=== PATIENT | male | born 1970 | race African-American/Black ===

== ENCOUNTER 2018-05-22 05:08 | Emergency (ER) | payer MEDICAID ==
[~2018-05-22] VITALS: Ht 182.9 cm; Wt 90.5 kg
[2018-05-22 05:30] VITALS: BP 159/98
[2018-05-22] MEDS ORDERED: ACET-3067 PO (05:43)
[2018-05-22] MEDS ORDERED: PENI500T2 PO (05:43)
== END 2018-05-22 05:58 | disposition home or self-care (01) ==
LOC: ER 05:09
DX: K02.9 Dental caries, unspecified (principal); K08.89 Other specified disorders of teeth and supporting structures
CPT/HCPCS: 99283

== ENCOUNTER 2018-12-15 18:13 | Emergency (ER) | payer MEDICAID ==
[~2018-12-15] VITALS: Ht 167.6 cm; Wt 86.4 kg
[2018-12-15 19:01] LABS: BASOPHILS % (AUTO) 0.8 % (0-1); EOSINOPHILS # (AUTO) 0.1 X10'3 (0-0.9); EOSINOPHILS % (AUTO) 2.3 % (0-6); HEMATOCRIT 48.3 % (42.0-52.0); HEMOGLOBIN 16.3 g/dl (14.0-17.9); LYMPHOCYTES # (AUTO) 1.8 X10'3 (1.1-4.8); LYMPHOCYTES % (AUTO) 33.4 % (21-51); MEAN CORPUSCULAR HEMOGLOBIN 30.6 PG (27.0-31.0); MEAN CORPUSCULAR HGB CONC 33.7 g/dL (33.0-36.5); MEAN CORPUSCULAR VOLUME 90.7 FL (78-98); MEAN PLATELET VOLUME 6.9 FL (7.4-10.4); MONOCYTES # (AUTO) 0.4 X10'3 (0-0.9); MONOCYTES % (AUTO) 7.8 % (2-12); NEUTROPHILS # (AUTO) 3.1 X10'3 (1.8-7.7); NEUTROPHILS % (AUTO) 55.7 % (42-75); PLATELET COUNT 234 X10'3 (140-440); RED BLOOD COUNT 5.33 X10'6 (4.70-6.10); RED CELL DISTRIBUTION WIDTH 13.6 % (11.5-14.5); WHITE BLOOD COUNT 5.5 X10'3 (4.5-11.0)
[2018-12-15 19:06] LABS: PARTIAL THROMBOPLASTIN TIME 29 SECONDS (22-32)
[2018-12-15 19:10] LABS: ALANINE AMINOTRANSFERASE 39 U/L (12-78); ALBUMIN 3.8 G/DL (3.4-5.0); ALKALINE PHOSPHATASE 83 IU/L (46-116); ANION GAP 5 (8-16); ASPARTATE AMINO TRANSFERASE 14 U/L (10-37); BILIRUBIN,TOTAL 0.5 MG/DL (0.1-1.0); BLOOD UREA NITROGEN 14 MG/DL (7-18); BUN/CREATININE RATIO 13.2 (5.4-32.0); CALCIUM 8.7 MG/DL (8.5-10.1); CHLORIDE 102 MMOL/L (99-107); CREATININE 1.06 MG/DL (0.60-1.10); GLUCOSE 104 MG/DL (70-104); POTASSIUM 4.3 MMOL/L (3.5-5.1); SODIUM 137 MMOL/L (135-145); TOTAL CARBON DIOXIDE 30.3 MMOL/L (24-32); TOTAL PROTEIN 7.8 G/DL (6.4-8.2); eGFR 89 ML/MIN
[2018-12-15 19:15] VITALS: BP 134/79
== END 2018-12-15 19:17 | disposition home or self-care (01) ==
LOC: ER 18:14
DX: R42 Dizziness and giddiness (principal); R79.1 Abnormal coagulation profile
CPT/HCPCS: 36415; 71045; 80053; 82948; 83880; 84484; 85025; 85610; 85730; 93005; 99284

== ENCOUNTER 2019-03-22 21:16 | Emergency (ER) | payer MEDICAID ==
[~2019-03-22] VITALS: Ht 167.6 cm; Wt 86.0 kg
[2019-03-22 21:38] VITALS: BP 129/76
--- NOTE | 2019-03-22 21:43 | NUR ---
Pt en route to XR via wheelchair.
[2019-03-22] MEDS ORDERED: TRAM50TA2 PO (22:00)
== END 2019-03-22 22:19 | disposition home or self-care (01) ==
LOC: ER 21:17
DX: M79.651 Pain in right thigh (principal); Z79.899 Other long term (current) drug therapy
CPT/HCPCS: 73552; 99283

== ENCOUNTER 2020-08-19 22:06 | Emergency (ER) | payer MEDICAID ==
[~2020-08-19] VITALS: Ht 167.6 cm; Wt 90.0 kg
[2020-08-20] MEDS ORDERED: AMOX500C2 PO (00:39)
[2020-08-20] MEDS ORDERED: HYDR-3965 PO (00:39)
[2020-08-20] MEDS ORDERED: HYDROcodone/acetaminophen 5mg/325mg tablet PO ONE (00:40)
[2020-08-20] MEDS ORDERED: amoxicillin 250mg capsule PO ONE (00:40)
[2020-08-20 00:49] VITALS: BP 150/87
== END 2020-08-20 01:20 | disposition home or self-care (01) ==
LOC: ER 22:07
DX: K08.89 Other specified disorders of teeth and supporting structures (principal); Z79.2 Long term (current) use of antibiotics
CPT/HCPCS: 99283

== ENCOUNTER 2020-09-25 23:17 | Emergency (ER) | payer MEDICAID ==
[~2020-09-25] VITALS: Ht 170.2 cm; Wt 100.9 kg
[2020-09-25] MEDS ORDERED: AMOX500C2 PO (23:53)
[2020-09-25] MEDS ORDERED: LIDO20SO16 PO (23:57)
[2020-09-25 23:58] VITALS: BP 134/78
== END 2020-09-26 00:35 | disposition home or self-care (01) ==
LOC: ER 23:17
DX: K04.7 Periapical abscess without sinus (principal); Z76.0 Encounter for issue of repeat prescription; Z79.899 Other long term (current) drug therapy
CPT/HCPCS: 99281

== ENCOUNTER 2021-01-10 11:40 | Emergency (ER) | payer MEDICAID ==
[~2021-01-10] VITALS: Ht 172.7 cm; Wt 100.0 kg
[~2021-01-10 11:40] MED LIST: LIDO20SO16 PO
[2021-01-10 11:57] VITALS: BP 139/78
[2021-01-10] MEDS ORDERED: IBUP-1985 PO (16:26)
== END 2021-01-10 16:42 | disposition home or self-care (01) ==
LOC: ER 11:41
DX: M25.561 Pain in right knee (principal); M79.89 Other specified soft tissue disorders; R51.9 Headache, unspecified; K08.89 Other specified disorders of teeth and supporting structures
CPT/HCPCS: 99282

== ENCOUNTER 2022-02-25 02:24 | Emergency (ER) | payer MEDICAID ==
[~2022-02-25] VITALS: Ht 167.6 cm; Wt 100.0 kg
[~2022-02-25 02:24] MED LIST changes: +IBUP-1985 PO
[2022-02-25 02:29] VITALS: BP 132/75
[2022-02-25 03:16] LABS: BASOPHILS % (AUTO) 0.7 % (0-1); EOSINOPHILS # (AUTO) 0.2 X10'3 (0-0.9); EOSINOPHILS % (AUTO) 3.2 % (0-6); HEMOGLOBIN 14.9 g/dl (14.0-17.9); LYMPHOCYTES # (AUTO) 2.1 X10'3 (1.1-4.8); LYMPHOCYTES % (AUTO) 39.4 % (21-51); MEAN CORPUSCULAR HGB CONC 34.7 g/dL (33.0-36.5); MEAN CORPUSCULAR VOLUME 89.4 FL (78-98); MONOCYTES # (AUTO) 0.4 X10'3 (0-0.9); MONOCYTES % (AUTO) 7.6 % (2-12); NEUTROPHILS # (AUTO) 2.6 X10'3 (1.8-7.7); NEUTROPHILS % (AUTO) 49.1 % (42-75); PLATELET COUNT 236 X10'3 (140-440); WHITE BLOOD COUNT 5.3 X10'3 (4.5-11.0)
[2022-02-25 03:18] LABS: ALANINE AMINOTRANSFERASE 30 U/L (12-78); ALBUMIN 3.7 G/DL (3.4-5.0); ALKALINE PHOSPHATASE 101 IU/L (46-116); ANION GAP 8 (8-16); ASPARTATE AMINO TRANSFERASE 12 U/L (10-37); BILIRUBIN,TOTAL 0.4 MG/DL (0.1-1.0); BLOOD UREA NITROGEN 16 MG/DL (7-18); BUN/CREATININE RATIO 14.2 (5.4-32.0); CALCIUM 8.5 MG/DL (8.5-10.1); CHLORIDE 101 MMOL/L (99-107); CREATININE 1.13 MG/DL (0.60-1.10); GLUCOSE 167 MG/DL (70-104); SODIUM 138 MMOL/L (135-145); TOTAL CARBON DIOXIDE 29.5 MMOL/L (24-32); TOTAL PROTEIN 7.3 G/DL (6.4-8.2); eGFR 82 ML/MIN
== END 2022-02-25 07:14 | disposition left against medical advice (07) ==
LOC: ER 02:25
DX: R07.9 Chest pain, unspecified (principal); Z53.21 Procedure and treatment not carried out due to patient leaving prior to being seen by health care provider; M54.2 Cervicalgia; M54.9 Dorsalgia, unspecified
CPT/HCPCS: 36415; 71045; 80053; 83880; 84484; 85025; 93005

== ENCOUNTER 2022-02-25 07:44 | Emergency (ER) | payer MEDICAID ==
[~2022-02-25] VITALS: Ht 165.1 cm; Wt 100.0 kg
[2022-02-25 07:57] VITALS: BP 134/80
== END 2022-02-25 11:26 | disposition home or self-care (01) ==
LOC: ER 07:44
DX: M54.6 Pain in thoracic spine (principal); M54.2 Cervicalgia; M25.512 Pain in left shoulder; I10 Essential (primary) hypertension
CPT/HCPCS: 93005; 99283

== ENCOUNTER 2022-04-18 22:43 | Emergency (ER) | payer MEDICAID ==
[~2022-04-18] VITALS: Ht 167.6 cm; Wt 95.5 kg
[2022-04-19] MEDS ORDERED: AMLO5TAB4 PO (03:22)
[2022-04-19 03:31] VITALS: BP 147/100
== END 2022-04-19 03:33 | disposition home or self-care (01) ==
LOC: ER 22:44
DX: I10 Essential (primary) hypertension (principal); Z79.899 Other long term (current) drug therapy
CPT/HCPCS: 99283

== ENCOUNTER 2022-12-03 22:38 | Emergency (ER) | payer MEDICAID ==
[~2022-12-03] VITALS: Ht 167.6 cm; Wt 97.7 kg
[~2022-12-03 22:38] MED LIST changes: +AMLO5TAB4 PO
[2022-12-03 22:45] VITALS: BP 130/64
== END 2022-12-04 01:53 | disposition left against medical advice (07) ==
LOC: ER 22:38
DX: R05.9 Cough, unspecified (principal); Z53.21 Procedure and treatment not carried out due to patient leaving prior to being seen by health care provider
CPT/HCPCS: 99281

== ENCOUNTER 2023-07-25 18:30 | Emergency (ER) | payer MEDICAID ==
[~2023-07-25 18:30] MED LIST changes: +AMI200T PO; -AMLO5TAB4 PO; +AMOX-580 PO; +ASPI81TA53 PO; +ATOR10TA PO; +CLOP75TA34 PO; +FURO40TA4 PO; -IBUP-1985 PO; -LIDO20SO16 PO; +LOP25T PO; +NO HOME MEDS; +POTA8TAB69 PO
== END 2023-07-25 20:06 | disposition left against medical advice (07) ==
LOC: ER 18:31
DX: Z00.8 Encounter for other general examination (principal); Z53.21 Procedure and treatment not carried out due to patient leaving prior to being seen by health care provider

== ENCOUNTER 2023-07-26 16:30 | Emergency (ER) | payer MEDICAID ==
[~2023-07-26] VITALS: Ht 167.6 cm; Wt 93.0 kg
[2023-07-26 16:37] VITALS: TEMP 98.2
[2023-07-26 17:46] LABS: BASOPHILS # (AUTO) 0.1 X10'3 (0-0.2); BASOPHILS % (AUTO) 0.7 % (0-1); EOSINOPHILS # (AUTO) 0.3 X10'3 (0-0.9); HEMATOCRIT 36.6 % (42.0-52.0); HEMOGLOBIN 12.3 g/dl (14.0-17.9); LYMPHOCYTES # (AUTO) 1.5 X10'3 (1.1-4.8); LYMPHOCYTES % (AUTO) 15.5 % (21-51); MEAN CORPUSCULAR HGB CONC 33.8 g/dL (33.0-36.5); MEAN CORPUSCULAR VOLUME 88.8 FL (78-98); MEAN PLATELET VOLUME 6.9 FL (7.4-10.4); MONOCYTES # (AUTO) 1.3 X10'3 (0-0.9); MONOCYTES % (AUTO) 13.5 % (2-12); NEUTROPHILS # (AUTO) 6.5 X10'3 (1.8-7.7); NEUTROPHILS % (AUTO) 67.3 % (42-75); PLATELET COUNT 485 X10'3 (140-440); RED BLOOD COUNT 4.12 X10'6 (4.70-6.10); RED CELL DISTRIBUTION WIDTH 13.2 % (11.5-14.5); WHITE BLOOD COUNT 9.6 X10'3 (4.5-11.0)
[2023-07-26 18:04] LABS: ALANINE AMINOTRANSFERASE 122 U/L (12-78); ALBUMIN 3.1 G/DL (3.4-5.0); ALBUMIN/GLOBULIN RATIO 0.7 (1.1-1.5); ALKALINE PHOSPHATASE 129 IU/L (46-116); ANION GAP 8 (8-16); ASPARTATE AMINO TRANSFERASE 31 U/L (10-37); BILIRUBIN,TOTAL 0.5 MG/DL (0.1-1.0); BLOOD UREA NITROGEN 13 MG/DL (7-18); BUN/CREATININE RATIO 11.4 (10.0-20.0); CALCIUM 7.6 MG/DL (8.5-10.1); CHLORIDE 102 MMOL/L (99-107); CREATININE 1.14 MG/DL (0.60-1.10); GLUCOSE 103 MG/DL (70-104); POTASSIUM 4.3 MMOL/L (3.5-5.1); SODIUM 140 MMOL/L (135-145); TOTAL CARBON DIOXIDE 30.2 MMOL/L (24-32); TOTAL PROTEIN 7.8 G/DL (6.4-8.2); eCRCL 67 ML/MIN; eGFR 81 ML/MIN
[2023-07-26 18:11] LABS: PRO BRAIN NATRIURETIC PEPTIDE 835 PG/ML (0-125)
[2023-07-26 18:57] LABS: TOTAL CELLS COUNTED 100
[2023-07-26 18:58] LABS: PLATELET ESTIMATE INCREASED
[2023-07-26] MEDS: HYDROmorphone 1 mg/ml syringe IV ONE (20:32)
[2023-07-26 21:24] VITALS: BP 103/66; PULSE 89; RESP 18; O2SAT 96
[2023-07-27] MEDS ORDERED: OMEP40CA21 PO (20:02)
== END 2023-07-26 21:26 | disposition home or self-care (01) ==
LOC: ER 16:33
DX: G89.18 Other acute postprocedural pain (principal); R07.89 Other chest pain; I10 Essential (primary) hypertension; F12.90 Cannabis use, unspecified, uncomplicated; F15.90 Other stimulant use, unspecified, uncomplicated; Z98.890 Other specified postprocedural states
CPT/HCPCS: 36415; 71045; 80053; 83880; 84484; 85007; 85025; 93005; 96374; 99285; J1170

== ENCOUNTER 2023-07-27 17:44 | Emergency (ER) | payer MEDICAID ==
[~2023-07-27] VITALS: Ht 167.6 cm; Wt 93.6 kg
[2023-07-27 18:00] VITALS: BP 136/103; PULSE 88; RESP 16; TEMP 98; O2SAT 98
[2023-07-27] MEDS ORDERED: OMEP40CA21 PO (20:02)
[2023-07-27] MEDS: mag hydrox/Alum hydrox/simeth 30ml oral suspension PO ONE (20:06)
[2023-07-27] MEDS: LIDOcaine Viscous 15ml cup MM PRN (20:07)
== END 2023-07-27 20:15 | disposition home or self-care (01) ==
LOC: ER 17:45
DX: R10.13 Epigastric pain (principal); F12.10 Cannabis abuse, uncomplicated; F15.10 Other stimulant abuse, uncomplicated; I10 Essential (primary) hypertension; Z79.899 Other long term (current) drug therapy
CPT/HCPCS: 96372; 99283; 99284

== ENCOUNTER 2024-03-22 16:27 | Emergency (ER) | payer MEDICAID, OTHER ==
[~2024-03-22] VITALS: Ht 167.6 cm; Wt 97.7 kg
[2024-03-22 18:06] LABS: BASOPHILS # (AUTO) 0.1 X10'3 (0-0.2); BASOPHILS % (AUTO) 0.9 % (0-1); EOSINOPHILS # (AUTO) 0.1 X10'3 (0-0.9); EOSINOPHILS % (AUTO) 1.5 % (0-6); LYMPHOCYTES # (AUTO) 2.1 X10'3 (1.1-4.8); LYMPHOCYTES % (AUTO) 31.5 % (21-51); MEAN CORPUSCULAR HEMOGLOBIN 30.7 PG (27.0-31.0); MEAN CORPUSCULAR HGB CONC 33.6 g/dL (33.0-36.5); MEAN CORPUSCULAR VOLUME 91.5 FL (78-98); MEAN PLATELET VOLUME 7.3 FL (7.4-10.4); MONOCYTES # (AUTO) 0.7 X10'3 (0-0.9); MONOCYTES % (AUTO) 10.3 % (2-12); NEUTROPHILS # (AUTO) 3.7 X10'3 (1.8-7.7); NEUTROPHILS % (AUTO) 55.8 % (42-75); PLATELET COUNT 293 X10'3 (140-440); RED CELL DISTRIBUTION WIDTH 13.4 % (11.5-14.5); WHITE BLOOD COUNT 6.6 X10'3 (4.5-11.0)
[2024-03-22 18:08] LABS: HEMOGLOBIN 18.1 g/dl (14.0-17.9)
[2024-03-22] MEDS: normal saline 1000ml 1,000 ML IV ONE (18:36)
[2024-03-22 18:54] LABS: BILIRUBIN,URINE NEGATIVE (Neg); CLARITY,URINE CLEAR (Clear); COLOR,URINE YELLOW (Yellow); GLUCOSE, URINE NEGATIVE (Neg); KETONES,URINE NEGATIVE (Neg); LEUKOCYTE ESTERASE ,URINE NEGATIVE (Neg); NITRITES, URINE NEGATIVE (Neg); OCCULT BLOOD,URINE TRACE-INTACT (Neg); PROTEIN,URINE NEGATIVE (Neg); UROBILINOGEN,URINE 0.2 E.U/dL (0.2-1.0)
[2024-03-22 18:58] LABS: UA COLLECTION TYPE NON-SPECIFIED
[2024-03-22 18:59] LABS: BACTERIA,URINE NONE SEEN /HPF (Neg); MUCUS STRANDS NONE SEEN /LPF (Neg); RBC,URINE 0-2 /HPF (0-2); SQUAMOUS EPITHELIAL CELL,UR NONE SEEN /LPF (FEW); WBC,URINE 0-4 /HPF (0-4)
[2024-03-22 19:07] LABS: URINE AMPHETAMINE SCREEN POSITIVE (Neg); URINE BARBITUATE SCREEN NEGATIVE (Neg); URINE BENZODIAZEPINES SCREEN NEGATIVE (Neg); URINE CANNABINOID SCREEN NEGATIVE (Neg); URINE COCAINE SCREEN NEGATIVE (Neg); URINE METHADONE SCREEN NEGATIVE (Neg); URINE OPIATE SCREEN NEGATIVE (Neg); URINE PHENCYCLIDINE SCREEN NEGATIVE (Neg)
[2024-03-22 19:12] LABS: ALANINE AMINOTRANSFERASE 28 U/L (12-78); ALBUMIN 3.9 G/DL (3.4-5.0); ALKALINE PHOSPHATASE 105 IU/L (46-116); ANION GAP 4 (8-16); ASPARTATE AMINO TRANSFERASE 14 U/L (10-37); BILIRUBIN,TOTAL 0.9 MG/DL (0.1-1.0); BLOOD UREA NITROGEN 9 MG/DL (7-18); BUN/CREATININE RATIO 7.8 (10.0-20.0); CALCIUM 8.9 MG/DL (8.5-10.1); CHLORIDE 103 MMOL/L (99-107); CREATININE 1.16 MG/DL (0.60-1.10); GLUCOSE 100 MG/DL (70-104); POTASSIUM 3.7 MMOL/L (3.5-5.1); SODIUM 138 MMOL/L (135-145); TOTAL CARBON DIOXIDE 30.7 MMOL/L (24-32); TOTAL PROTEIN 7.8 G/DL (6.4-8.2); eCRCL 65 ML/MIN; eGFR 79 ML/MIN
[2024-03-22] MEDS ORDERED: CLOP75TA34 PO (20:52)
[2024-03-22] MEDS ORDERED: LOP25T PO (20:52)
[2024-03-22] MEDS ORDERED: OMEP40CA21 PO (21:03)
[2024-03-22] MEDS: amLODIPine 5mg tablet PO ONE (21:04)
[2024-03-22] MEDS: metoprolol tartrate 50mg tablet PO ONE (21:04)
[2024-03-22] MEDS: clopidogrel 75mg tablet PO ONE (21:08)
[2024-03-22 21:38] VITALS: BP 177/105; PULSE 91; RESP 14; TEMP 98.3; O2SAT 98
== END 2024-03-22 21:41 | disposition still patient (30) ==
LOC: ER 16:28
DX: F15.10 Other stimulant abuse, uncomplicated (principal); N52.9 Male erectile dysfunction, unspecified; I10 Essential (primary) hypertension; F12.90 Cannabis use, unspecified, uncomplicated; F15.90 Other stimulant use, unspecified, uncomplicated; Z95.1 Presence of aortocoronary bypass graft; Z79.2 Long term (current) use of antibiotics; Z79.82 Long term (current) use of aspirin; Z79.899 Other long term (current) drug therapy
CPT/HCPCS: 36415; 71045; 80053; 80305; 81001; 84484; 85025; 93005; 96360; 99285; J7030

== ENCOUNTER 2024-06-20 08:01 | Emergency (ER) | payer OTHER ==
[~2024-06-20] VITALS: Ht 167.6 cm; Wt 101.5 kg
[~2024-06-20 08:01] MED LIST changes: -AMI200T PO; -AMOX-580 PO; -ATOR10TA PO; -CLOP75TA34 PO; -FURO40TA4 PO; -NO HOME MEDS; +OMEP40CA21 PO; -POTA8TAB69 PO
[2024-06-20 08:12] VITALS: TEMP 97.6
[2024-06-20 08:40] LABS: BASOPHILS % (AUTO) 0.3 % (0-1); EOSINOPHILS # (AUTO) 0.1 X10'3 (0-0.9); EOSINOPHILS % (AUTO) 1.1 % (0-6); HEMATOCRIT 47.6 % (42.0-52.0); HEMOGLOBIN 16.3 g/dl (14.0-17.9); LYMPHOCYTES # (AUTO) 2.5 X10'3 (1.1-4.8); LYMPHOCYTES % (AUTO) 37.2 % (21-51); MEAN CORPUSCULAR HEMOGLOBIN 30.8 PG (27.0-31.0); MEAN CORPUSCULAR HGB CONC 34.2 g/dL (33.0-36.5); MEAN CORPUSCULAR VOLUME 90.3 FL (78-98); MEAN PLATELET VOLUME 6.9 FL (7.4-10.4); MONOCYTES # (AUTO) 0.6 X10'3 (0-0.9); NEUTROPHILS # (AUTO) 3.5 X10'3 (1.8-7.7); NEUTROPHILS % (AUTO) 52.4 % (42-75); PLATELET COUNT 281 X10'3 (140-440); RED BLOOD COUNT 5.27 X10'6 (4.70-6.10); RED CELL DISTRIBUTION WIDTH 13.2 % (11.5-14.5); WHITE BLOOD COUNT 6.8 X10'3 (4.5-11.0)
[2024-06-20 08:59] LABS: ALANINE AMINOTRANSFERASE 35 U/L (12-78); ALBUMIN 3.8 G/DL (3.4-5.0); ALKALINE PHOSPHATASE 103 IU/L (46-116); ANION GAP 12 (8-16); ASPARTATE AMINO TRANSFERASE 21 U/L (10-37); BILIRUBIN,TOTAL 0.7 MG/DL (0.1-1.0); BLOOD UREA NITROGEN 10 MG/DL (7-18); BUN/CREATININE RATIO 9.5 (10.0-20.0); CALCIUM 8.4 MG/DL (8.5-10.1); CHLORIDE 102 MMOL/L (99-107); CREATININE 1.05 MG/DL (0.60-1.10); GLUCOSE 191 MG/DL (70-104); POTASSIUM 3.3 MMOL/L (3.5-5.1); SODIUM 139 MMOL/L (135-145); TOTAL CARBON DIOXIDE 25.5 MMOL/L (24-32); TOTAL PROTEIN 7.5 G/DL (6.4-8.2); eCRCL 72 ML/MIN; eGFR 89 ML/MIN
[2024-06-20 09:11] LABS: PRO BRAIN NATRIURETIC PEPTIDE 75 PG/ML (0-125)
[2024-06-20 11:32] LABS: BILIRUBIN,URINE NEGATIVE (Neg); COLOR,URINE YELLOW (Yellow); GLUCOSE, URINE 100 mg/dl (Neg); KETONES,URINE NEGATIVE (Neg); LEUKOCYTE ESTERASE ,URINE NEGATIVE (Neg); NITRITES, URINE NEGATIVE (Neg); OCCULT BLOOD,URINE MODERATE (Neg); PH,URINE 5.5 (4.8-8.0); PROTEIN,URINE TRACE mg/dl (Neg); UROBILINOGEN,URINE 0.2 E.U/dL (0.2-1.0)
[2024-06-20 11:36] LABS: CLARITY,URINE SLIGHTLY CLOUDY (Clear); UA COLLECTION TYPE FOLEY CATH
[2024-06-20 11:41] LABS: BACTERIA,URINE FEW /HPF (Neg); RBC,URINE 20-50 /HPF (0-2); WBC,URINE 0-4 /HPF (0-4)
[2024-06-20 11:42] LABS: MUCUS STRANDS NONE SEEN /LPF (Neg); RENAL CELLS, URINE FEW /HPF; SPERM FEW /HPF (NEGATIVE); SQUAMOUS EPITHELIAL CELL,UR FEW /LPF (FEW)
[2024-06-20 11:46] LABS: URINE AMPHETAMINE SCREEN POSITIVE (Neg); URINE BARBITUATE SCREEN NEGATIVE (Neg); URINE BENZODIAZEPINES SCREEN NEGATIVE (Neg); URINE CANNABINOID SCREEN POSITIVE (Neg); URINE COCAINE SCREEN NEGATIVE (Neg); URINE METHADONE SCREEN NEGATIVE (Neg); URINE OPIATE SCREEN NEGATIVE (Neg); URINE PHENCYCLIDINE SCREEN NEGATIVE (Neg)
[2024-06-20 12:20] VITALS: BP 110/68; PULSE 98; RESP 17; O2SAT 98
== END 2024-06-20 12:23 | disposition home or self-care (01) ==
LOC: ER 08:03
DX: F19.10 Other psychoactive substance abuse, uncomplicated (principal); R07.89 Other chest pain; I10 Essential (primary) hypertension; F12.90 Cannabis use, unspecified, uncomplicated; F15.90 Other stimulant use, unspecified, uncomplicated; Z95.1 Presence of aortocoronary bypass graft; Z79.82 Long term (current) use of aspirin; Z20.822 Contact with and (suspected) exposure to COVID-19
CPT/HCPCS: 36415; 71045; 80053; 80305; 81001; 83880; 84484; 85025; 87502; 87503; 87811; 93005; 99285; C1758

== ENCOUNTER 2024-09-01 00:26 | Emergency (ER) | payer OTHER ==
[~2024-09-01] VITALS: Ht 167.6 cm; Wt 97.7 kg
[2024-09-01 00:27] VITALS: BP 169/94; TEMP 98
[2024-09-01 00:58] LABS: BASOPHILS % (AUTO) 0.8 % (0-1); EOSINOPHILS # (AUTO) 0.1 X10'3 (0-0.9); HEMATOCRIT 47.1 % (42.0-52.0); HEMOGLOBIN 16.4 g/dl (14.0-17.9); LYMPHOCYTES # (AUTO) 1.4 X10'3 (1.1-4.8); LYMPHOCYTES % (AUTO) 25.2 % (21-51); MEAN CORPUSCULAR HEMOGLOBIN 30.8 PG (27.0-31.0); MEAN CORPUSCULAR HGB CONC 34.8 g/dL (33.0-36.5); MEAN CORPUSCULAR VOLUME 88.5 FL (78-98); MEAN PLATELET VOLUME 6.9 FL (7.4-10.4); MONOCYTES # (AUTO) 0.4 X10'3 (0-0.9); MONOCYTES % (AUTO) 6.5 % (2-12); NEUTROPHILS # (AUTO) 3.6 X10'3 (1.8-7.7); NEUTROPHILS % (AUTO) 65.5 % (42-75); PLATELET COUNT 224 X10'3 (140-440); RED BLOOD COUNT 5.32 X10'6 (4.70-6.10); RED CELL DISTRIBUTION WIDTH 13.1 % (11.5-14.5); WHITE BLOOD COUNT 5.5 X10'3 (4.5-11.0)
[2024-09-01 01:12] LABS: ALANINE AMINOTRANSFERASE 29 U/L (12-78); ALBUMIN 3.6 G/DL (3.4-5.0); ALBUMIN/GLOBULIN RATIO 0.9 (1.1-1.5); ALKALINE PHOSPHATASE 102 IU/L (46-116); ANION GAP 6 (8-16); ASPARTATE AMINO TRANSFERASE 13 U/L (10-37); BILIRUBIN,TOTAL 0.7 MG/DL (0.1-1.0); BLOOD UREA NITROGEN 8 MG/DL (7-18); BUN/CREATININE RATIO 8.5 (10.0-20.0); CALCIUM 8.7 MG/DL (8.5-10.1); CHLORIDE 101 MMOL/L (99-107); CREATININE 0.94 MG/DL (0.60-1.10); GLUCOSE 152 MG/DL (70-104); SODIUM 137 MMOL/L (135-145); TOTAL PROTEIN 7.8 G/DL (6.4-8.2); eCRCL 80 ML/MIN; eGFR > 90 ML/MIN
[2024-09-01 01:22] LABS: PRO BRAIN NATRIURETIC PEPTIDE 58 PG/ML (0-125)
[2024-09-01] MEDS ORDERED: albuterol 2.5 MG/3 ML nebule CONTNEB PRN (02:10)
[2024-09-01 03:50] VITALS: PULSE 75; RESP 16; O2SAT 95
== END 2024-09-01 03:52 | disposition home or self-care (01) ==
LOC: ER 00:27
DX: R06.02 Shortness of breath (principal); I10 Essential (primary) hypertension; F12.90 Cannabis use, unspecified, uncomplicated; F15.90 Other stimulant use, unspecified, uncomplicated; Z95.1 Presence of aortocoronary bypass graft; Z79.82 Long term (current) use of aspirin; Z79.899 Other long term (current) drug therapy
CPT/HCPCS: 36415; 71045; 80053; 83880; 84484; 85025; 93005; 99285

== ENCOUNTER 2025-05-05 11:16 | Emergency (ER) | payer MEDICAID ==
[~2025-05-05] VITALS: Ht 167.6 cm; Wt 100.1 kg
[2025-05-05 11:17] VITALS: TEMP 98.5
--- NOTE | 2025-05-05 11:47 | ELECTROCARDIOGRAPH REPORT ---
[facility] Test Date: 2025-05-05 Test Time: 11:44:50 Pat Name: TAM PHOENIX Department: [facility]- Patient ID: [facility]-[id number] Room: Gender: M [employer]: : 1970 Requested By: DEREK DEE Order Number: [id number] Reading MD: Dr. MARGARITA Urias Measurements Intervals [place] Rate: 69 P: 43 FL: 172 QRS: -57 QRSD: 108 T: 119 QT: 410 QTc: 440 Interpretive Statements Sinus rhythm Probable left atrial enlargement Left anterior fascicular block Abnormal R-wave progression, late transition LVH with secondary repolarization abnormality Baseline wander in lead(s) V6 Electronically Signed On 05-06-2025 17:08:[address] MARGARITA Urias Please click the below link to view image of tracing.
[2025-05-05 12:12] LABS: MEAN PLATELET VOLUME 6.9 FL (7.4-10.4); RED CELL DISTRIBUTION WIDTH 13.1 % (11.5-14.5)
--- NOTE | 2025-05-05 12:12 | Physician Documentation ---
History of Present Illness General Chief Complaint: Dizziness Stated Complaint: DIZZINESS Time Seen by MD: 11:53 Primary Medical Doctor: [facility] clinic Mode of Arrival: POV, Dropped Off History of Present Illness Initial Comments Patient is a 54-year-old male who states he was in verbal altercations over the last 12 hours with a neighbor and developed some dizziness proximally 3 hours ago associated with some nausea. Patient denies room spinning he states that he just feels lightheaded and that he has been nauseous but he has not vomited. Patient denies any shortness of breath he denies any chest pain. The patient has a history of cardiac disease he has states he has has a triple bypass proximally three years ago. Patient's symptoms are moderate and persistent. Patient denies any fevers chills or diarrhea Medication Reconciliation Allergies: Coded Allergies: No Known Allergies (Unverified , 03/22/24) Scheduled Aspirin (Children's Aspirin), 81 MG PO Q24H@0830 Metoprolol Tartrate* (Lopressor tablet*), 25 MG PO Q12H Omeprazole (Prilosec), 1 CAP PO DAILY, (Reported) Past Medical History Past Medical History: *CARDIOVASCULAR*, Coronary Artery Disease, Hypertension, *ENDOCRINE* Past Surgical History: coronary bypass surgery Smoking: Secondhand Alcohol Use: None Drug Use: marijuana, methamphetamine Lives with: Family Lives In: Home Review of Systems All Other Systems at this time: Reviewed and Negative Physical Exam Physical Exam Vital Signs: Temperature: 98.5, Source: Oral, Heart Rate: 69, Respiratory Rate: 13, BP: 162/98, Pulse Oximetry: 96, Weight: 100.100 Oxygen Flow Rate: 0 Physical Exam VITALS: Reviewed and as above. GENERAL: Alert, no apparent distress. HEENT: Normocephalic, atraumatic, PERRL, EOMI, dry mucosa, no erythema RESPIRATORY: Lungs clear, normal breath sounds, no respiratory distress. CHEST: No accessory muscle use, no retractions CV: Regular rate, rhythm, no edema, no murmur, No: JVD GI: Soft, non-tender, bowels sounds present, no rebound, guarding, or rigidity BACK: No CVA tenderness, or swelling MUSCULOSKELETAL: No deformities, no edema SKIN: Warm and dry, no rash NEURO: Oriented x4, No motor or sensory deficit PSYCH: Normal mood and affect, no agitation Progress Results/Orders Results/Orders Orders - OHDEREK BOLTON MD Electrocardiogram (05/05/25 11:35) Chest,Single View (05/05/25 11:52) Saline Lock (05/05/25 11:52) Monitor (05/05/25 11:52) Completed Orders - DEREK RICH MD Electrocardiogram (05/05/25 11:35) Cbc/Diff (05/05/25 11:52) MG (05/05/25 11:52) PBNP (05/05/25 11:52) Chest,Single View (05/05/25 11:52) BMP (05/05/25 11:52) Hs Troponin I W Calculations (05/05/25 11:52) Hs Troponin I W Calculations (05/05/25 13:52) Ondansetron Disint. Tablet (Zofran Odt T (05/05/25 12:10) Ondansetron Disint. Tablet (Zofran Odt T (05/05/25 13:50) Vital Signs 05/05/25 05/05/25 05/05/25 11:17 11:32 13:54 Temp 98.5 Pulse 69 64 Resp 16 13 12 B/P (MAP) 162/98 158/103 Pulse Ox 96 94 O2 Flow Rate 0 Laboratory Tests Test 05/05/25 12:04 05/05/25 13:05 White Blood Count 5.0 Red Blood Count 5.37 Hemoglobin 16.2 Hematocrit 47.4 Mean Corpuscular Volume 88.1 Mean Corpuscular Hemoglobin 30.2 Mean Corpuscular Hemoglobin Concent 34.3 Red Cell Distribution Width 13.1 Platelet Count 246 Mean Platelet Volume 6.9 L Neutrophils (%) (Auto) 60.3 Lymphocytes (%) (Auto) 28.1 Monocytes (%) (Auto) 8.1 Eosinophils (%) (Auto) 2.8 Basophils (%) (Auto) 0.7 Neutrophils # (Auto) 3.0 Lymphocytes # (Auto) 1.4 Monocytes # (Auto) 0.4 Eosinophils # (Auto) 0.1 Basophils # (Auto) 0.0 CBC Comment Sodium Level 136 Potassium Level 4.4 Chloride Level 102 Carbon Dioxide Level 27.8 Anion Gap 6 L Blood Urea Nitrogen 12 Creatinine 0.91 Estimated GFR/1.73 m2 > 90 BUN/Creatinine Ratio 13.2 Glucose Level 124 H Calcium Level 8.7 Magnesium Level 2.0 Troponin I High Sensitivity 15 15 Pro-B-Type Natriuretic Peptide 33 Albumin 3.9 Chemistry Comments Troponin I High Sens Percent Delta 0 Troponin I Hi Sens Absolute Change 0 EKG/XRAY/CT/US/VASC/MRI Chest X-Ray : Additional Comments Patient: TAM PHOENIX Medical Record: [id number] [facility] : 1970, Age: 54 Sex: Male Location: ER Patient Status: [facility] ER Service Date/Time: 05/05/25/ 115 Ordering Physician: DEREK RICH MD Exam: CHEST,SINGLE VIEW CHEST RADIOGRAPH Indication: CP Technique: Single frontal view of the chest was obtained COMPARISON: DI CHEST,SINGLE VIEW on DOS: 09/01/24, DI CHEST,SINGLE VIEW on DOS: 06/20/24, DI CHEST,SINGLE VIEW on DOS: 03/22/24, DI CHEST,SINGLE VIEW on DOS: 07/26/23, DI CHEST,SINGLE VIEW on DOS: 07/23/23 FINDINGS: Lines and Tubes: Median sternotomy Lungs: Clear Pleura: No effusion. No pneumothorax. Cardiomediastinal contours: Unremarkable Bones: Unremarkable IMPRESSION: No acute disease. Electronically Signed by:BAKARI GILBERT MD Date & Time: 05/05/25 1230 Dictated by: BAKARI GILBERT MD Dictation date and time: 05/05/25 115 Primary Care Provider: NO PRIMARY CARE PROVIDER cc: DEREK RICH MD ~ Medical Decision Making Additional information obtaine: old records Findings The patient is 12 lead EKG demonstrates a sinus rhythm rate of 69 with a left axis deviation the patient has Q-waves in V1 through V3 and he has T-wave inversions in V for V5 V6 and biphasic appearing T-waves in III and T-wave inversions in II as well as AVF, his EKG was interpreted as an abnormal EKG. The patient presented emergency room with tremors that were small resting shaking of her upper extremity. It did not appear to be any seizure like activity. Is dehydrated and her monitoring tech was interpreted as a sinus tachycardia. Patient was hydrated and found to have a urinary tract infection, treated for the infection her [place] level was checked, the patient is improved she will be discharged. Differential Diagnosis dehydration, infection cardiac ischemia Departure Disposition: HOME / SELF CARE / HOMELESS Impression: Primary Impression: Dizziness Discharge Instructions: Dizziness Referrals: NO PRIMARY CARE PROVIDER (PCP) Signature Scribe Signature: no scribe Attestation: The note accurately reflects work and decisions made by me.Derek Rich MD 05/07/25 14:00 DEREK RICH MD May 05, 2025 12:12
--- NOTE | 2025-05-05 12:32 | RADIOLOGY REPORT ---
CHEST RADIOGRAPH Indication: CP Technique: Single frontal view of the chest was obtained COMPARISON: DI CHEST,SINGLE VIEW on DOS: 09/01/24, DI CHEST,SINGLE VIEW on DOS: 06/20/24, DI CHEST,SINGLE VIEW on DOS: 03/22/24, DI CHEST,SINGLE VIEW on DOS: 07/26/23, DI CHEST,SINGLE VIEW on DOS: 07/23/23 FINDINGS: Lines and Tubes: Median sternotomy Lungs: Clear Pleura: No effusion. No pneumothorax. Cardiomediastinal contours: Unremarkable Bones: Unremarkable IMPRESSION: No acute disease.
[2025-05-05] MEDS: ondansetron 4mg rapidly disintigrating tab PO ONE (12:34)
[2025-05-05 12:35] LABS: CREATININE 0.91 MG/DL (0.60-1.10); PRO BRAIN NATRIURETIC PEPTIDE 33 PG/ML (0-125); TOTAL CARBON DIOXIDE 27.8 MMOL/L (24-32); eCRCL 82 ML/MIN; eGFR > 90 ML/MIN
[2025-05-05] MEDS ORDERED: ondansetron 4mg rapidly disintigrating tab PO ONE (13:50)
[2025-05-05 13:54] VITALS: BP 158/103; PULSE 64; RESP 12; O2SAT 94
== END 2025-05-05 13:58 | disposition home or self-care (01) ==
LOC: ER 11:16
DX: R42 Dizziness and giddiness (principal); R06.02 Shortness of breath; I11.9 Hypertensive heart disease without heart failure; I25.10 Atherosclerotic heart disease of native coronary artery without angina pectoris; F12.90 Cannabis use, unspecified, uncomplicated; F15.90 Other stimulant use, unspecified, uncomplicated; Z95.1 Presence of aortocoronary bypass graft
CPT/HCPCS: 36415; 71045; 80048; 83735; 83880; 84484; 85025; 93005; 99285